=== PATIENT | female | born 1960 | race Caucasian/White ===

== ENCOUNTER → 2018-08-01 | Outpatient (CLI) | payer OTHER ==
[~2018-08-01] MED LIST: ALBUTEROL SULFATE 2.5 MG/3 ML NEBU. NEB ONE
--- NOTE | 2018-08-01 09:16 | RAD ---
Chest, 2 views, 08/01/2018: HISTORY: Asthma The heart is at the upper limits of normal in size. The pulmonary vascularity is normal. No pulmonary infiltrate is seen. There is no evidence of pleural fluid. Mild scattered spurs are present in the spine. IMPRESSION: No acute cardiopulmonary abnormality is detected. Electronically signed by: Bernardo Hyman MD (08/01/2018 9:13 AM) [facility]
== END | disposition home or self-care (01) ==
LOC: PF 07:30
PROVIDERS: ATTEND Surgery
DX: J45.998 Other asthma (principal)
CPT/HCPCS: 71046; 94060; 94640; J7613